=== PATIENT | female | born 1955 | race Caucasian/White ===

== ENCOUNTER 2017-01-30 14:28 | Emergency (ER) | payer OTHER ==
[~2017-01-30] VITALS: Ht 167.6 cm; Wt 78.9 kg
--- NOTE | 2017-01-30 15:35 | DIREP ---
PROCEDURE:XRAY HUMERUS MIN 2 VWS-LT COMPARISON:None. INDICATIONS:pain deltoid area, FALL FINDINGS: BONES:Two views of the left humerus. No acute fracture, cortical destruction or periosteal reaction is seen in the left humerus. JOINTS:Downsloping acromion causes impingement. SOFT TISSUES:Normal. OTHER:No additional findings. CONCLUSION:No acute findings in the two views of the left humerus. Dictated by: Ezekiel Sena MD on 01/30/2017 at 03:34 PM
--- NOTE | 2017-01-30 15:54 | ER.PDOC ---
General Chief Complaint: Extremities Stated Complaint: LEFT UPPER ARM,WEAKNESS/SWOLLEN/WITH PAIN Time seen by MD: 15:00 Source: patient History of Present Illness Occurred: last week Where: home Severity: mild Modifying Factors: pain on movement Past Medical History Medical History: no pertinent history Surgical History: no surgical history LMP (females 10-50): postmenopause Social History Smoking: greater than 1 pack/day Drug Use: none Review of Systems All Other Systems: Reviewed and Negative Physical Exam General Appearance: Alert, No Apparent Distress Hand: nml inspection, non-tender Wrist: nml inspection, non-tender, nml ROM Forearm/Elbow: nml inspection, non-tender, nml ROM Arm/Shoulder: tenderness, limited ROM by pain 1 - tender 1 - tender Neuro/Vasc/Tendon: sensation nml, motor nml, no vascular compromise, tendon function nml Skin: warm/dry Head/ENT: nml inspection, pharynx nml Neck/Back: nml inspection, non-tender Respiratory: chest non-tender, breath sounds nml CVS: heart sounds normal Abdomen: non-tender, no organomegaly Departure Time of Disposition: 16:00 Disposition: 01 HOME, SELF-CARE Impression: Primary Impression: Left shoulder tendinitis Referrals: PCP,UNKNOWN (PCP) PRIMARY CARE PROVIDER CHARLOTTE AHUMADA MD Jan 30, 2017 15:54
== END 2017-01-30 16:13 | disposition home or self-care (01) ==
LOC: ER 14:28
DX: M75.92 Shoulder lesion, unspecified, left shoulder (principal); F17.200 Nicotine dependence, unspecified, uncomplicated
CPT/HCPCS: 99284; 73060-LT